=== PATIENT | female | born 1980 | race Caucasian/White ===

== ENCOUNTER 2017-02-02 21:17 | Emergency (ER) | payer BC, OTHER ==
[2017-02-02 21:27] VITALS: BP 144/79
[2017-02-02] MEDS ORDERED: METHYLPREDNISOLONE SOD SUCC/PF 125 MG/2 ML VIAL IM ONE (21:40)
--- NOTE | 2017-02-02 21:45 | ERNOTE ---
Date of Service: 02/02/17 Time Seen by Provider: 02/02/17 21:30 Stated Complaint: ALLERGIES Presenting Symptoms:: cough, runny nose Source: patient Immunizations: IMMUNIZATION HX Immunizations Up to Date Yes History of Influenza Vaccine No Hx Pneumococcal Vaccination No Allergies/Adverse Reactions: Allergies No Known Drug Allergies Allergy (Verified 02/02/17 21:28) Home Medications: HOME MEDICATIONS Cholecalciferol [Vitamin D] 1,000 unit PO DAILY 02/02/17 [Last Taken Unknown] Fexofenadine HCl [Luana Allergy] 180 mg PO DAILY 02/02/17 [Last Taken Unknown] Levothyroxine Sodium [Tirosint] 75 mcg PO DAILY 02/02/17 [Last Taken Unknown] diphenhydrAMINE HCL [Benadryl] 50 mg PO Q6H PRN 02/02/17 [Last Taken 02/02/17 19 :30] - History of Present Ilness Narrative: This is a 36-year-old female who comes to the emergency department complaining of "allergies". The patient states that she is itchy skin, watery eyes, occasional cough, nasal drainage, occasional sore throat. The patient was seen by another doctor about a week ago and was treated for pinkeye. The patient says that [place] moved to the area in 2011, and every single January since then she has developed these exact same symptoms. She says that her also developed symptoms like this. She says each year she received a steroid shot in her symptoms get better. He denies any fever. Denies any vomiting. Denies nausea. Denies urinary or gastrointestinal symptoms. She says that her allergies are "seasonal". She has been using Benadryl with some mild success. She denies chest pain or shortness of breath. Review of Systems - Review of Systems Constitutional: Present: no symptoms reported EYE: Present: tearing ENT: Present: nasal drainage, throat swelling Respiratory: Present: cough Cardiology: Present: no symptoms reported Gastrointestinal/Abdominal: Present: no symptoms reported Genitourinary: Present: no symptoms reported Musculoskeletal: Present: no symptoms reported Skin: Present: rash, other - itching Neurological: Present: no symptoms reported Endocrine: Present: no symptoms reported Hematologic/Lymphatic: Present: no symptoms reported Psych: Present: no symptoms reported - Patient's Past Medical History Patient History - Medical: No pertinent hx Patient History - Cardiac/Respiratory: No pertinent hx Patient History - Cancer: No Hx of Cancer Patient History - Surgical Procedures: Patient History - Other: None LMP (Calendar): 01/23/17 - Social History Living Situations: home Abuse History: No History of abuse Psych History: No pertinent hx Smoking Status: Never smoker Alcohol Use: rarely Drug Use: none - Immunizations Immunizations Up to Date: Yes Hx Pneumococcal Vaccination: No History of Influenza Vaccine: No Physical Exam - Physical Exam General Appearance: Present: wd/wn, alert, no apparent distress Head Exam: Present: normal inspection, no evidence of injury, other - patient has a slight erythematous/red discoloration to the face including forehead, cheeks, temples, chin, submandibular area. Eye Exam: Normal inspection: bilateral, PERRL: bilateral, EOMI: bilateral Ears, Nose, Throat: Present: normal ENT inspection, normal pharynx, other - no stridor Neck: Present: normal inspection, nontender Respiratory: Present: no respiratory distress, lungs clear Cardiovascular/Chest: Present: regular rate, rhythm, no murmur Gastrointestinal/Abdominal: Present: normal bowel sounds, nontender, nondistended, soft, McBurney sign Rectal Exam: Present: deferred Back Exam: Present: normal inspection, normal range of motion, no CVA tenderness Extremity Exam: Present: normal inspection, no edema Neurological Exam: Present: alert, oriented, normal mood/affect Skin Exam: Present: normal color, other - patient has 3 seconds of dermatographia to her back, arms, abdomen Lymphatic Exam: Present: no adenopathy ED Progress - Vital Signs Patient's Vital Signs:: I have reviewed the patient's vital signs. Vital Signs: Vital Signs 02/02/17 21:22 Temperature 36.8 C Pulse Rate 75 Respiratory 18 Rate Blood Pressure 144/79 O2 Sat by Pulse 98 Oximetry - Progress/Reassessment Chief Complaint: Upper Respiratory Symptoms Plan - Plan Plan: This is a 36-year-old female coming in with allergy symptoms. She says she's had these every year for the last 5 years around this time. She says each time she received a steroid shot her symptoms go away within a day or 2. I certainly think that giving her a course of steroids is not inappropriate. We 'll give her Solu-Medrol 125 mg. She has had these symptoms for more than a week. She is aware that if she develops new concerning symptoms such as difficulty breathing, chest pain, dizziness she needs to return to the ER. She'll follow-up with her family doctor. We used a discussion about Claritin or Luana in place of Benadryl. Departure - Departure Clinical Impression: Allergy Disposition: Home self-care Condition: Stable Instructions: Allergies, [id number] Additional Instructions: As we discussed, you can use Claritin or Luana to help with her symptoms. The steroid shot should start working within 12 hours [facility] family doctor and set up a follow-up appointment Return to the ER for new or worrisome symptoms. Referrals: Vickie Myres MD [Primary Care Provider] -
[2017-02-02] MEDS ORDERED: METHYLPREDNISOLONE SOD SUCC/PF 125 MG/2 ML VIAL ONE (21:46)
== END 2017-02-02 22:10 | disposition home or self-care (01) ==
LOC: ER 21:17
DX: J30.2 Other seasonal allergic rhinitis (principal)